=== PATIENT | female | born 1980 | race Caucasian/White ===

== ENCOUNTER 2017-05-16 15:01 | Emergency (ER) | payer BC, OTHER ==
[~2017-05-16] VITALS: Ht 167.6 cm; Wt 78.6 kg
[~2017-05-16 15:01] MED LIST: CITA40TA12 PO; IBUP600T44 PO; LORA-741 PO
[2017-05-16 15:12] VITALS: TEMP 36.8; Ht 167.6 cm; Wt 78.6 kg
[2017-05-16] MEDS ORDERED: HYDR25CA PO ×2 (15:21→19:20)
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
[2017-05-16 16:45] LABS: URINE APPEARANCE CLEAR (CLEAR); URINE BILIRUBIN NEG (NEG); URINE COLOR DK YELLOW; URINE EPITHELIAL CELL AUTO >30 /lpf (0-5); URINE NITRITE NEG (NEG); URINE PH 5.5 (4.5-7.5); UROBILINOGEN NEG (NEG)
[2017-05-16 16:46] LABS: MANUAL MICROSCOPIC REQUIRED? NO; REVIEW REQ? NO
[2017-05-16 17:02] LABS: BENZODIAZEPINE, URINE NEG (NEG); COCAINE,URINE NEG (NEG); PHENCYCLIDINE, URINE NEG (NEG)
[2017-05-16] MEDS ORDERED: hydrOXYzine HCL 25 MG TAB PO STA (17:11)
[2017-05-16] MEDS ORDERED: CITALOPRAM 20 MG TAB PO STA (17:11)
[2017-05-16 17:46] LABS: BASO % 0.1 %; BASO ABS # 0.01 K/uL (0-0.2); COMPLETE YES; EOS % 0.3 %; HEMATOCRIT 40.9 % (37-47); IG% 0.1 %; LYMPH % 19.9 %; LYMPH ABS # 1.59 K/uL (1.2-3.4); MEAN CELL VOLUME 91.7 fL (80-100); MEAN CORPUSCULAR HEMOGLOBIN 31.6 pg (25-34); MEAN CORPUSCULAR HGB CONC 34.5 g/dl (32-36); MEAN PLATELET VOLUME 9.1 fL (7.4-10.4); MONO % 5.3 %; NEUT % 74.3 %; PLATELET COUNT 236 K/uL (130-400); RED BLOOD COUNT 4.46 M/uL (4.2-5.4)
[2017-05-16] MEDS ORDERED: LORAZEPAM 1 MG TAB SL STA (17:47)
[2017-05-16 18:07] LABS: ALT/SGPT 30 U/L (12-78); BLOOD UREA NITROGEN 12 mg/dl (7-18); BUN/CREATININE RATIO 15.7 (10-20); CALCIUM 9.1 mg/dl (8.5-10.1); CARBON DIOXIDE 28 mmol/L (21-32); CHLORIDE 103 mmol/L (98-107); CREATININE 0.75 mg/dl (0.60-1.20); GLUCOSE 107 mg/dl (70-99); POTASSIUM 3.9 mmol/L (3.5-5.1); SODIUM 137 mmol/L (136-145)
[2017-05-16 18:18] LABS: ALKALINE PHOSPHATASE 86 U/L (45-117); AST/SGOT 21 U/L (15-37)
[2017-05-16] MEDS ORDERED: CITA20TA4 PO (19:20)
[2017-05-16 19:35] VITALS: BP 122/78; PULSE 72; O2SAT 98
== END 2017-05-16 19:35 | disposition home or self-care (01) ==
LOC: C.EDB 15:06 → C.EDA 19:35
DX: F39 Unspecified mood [affective] disorder (principal); H91.90 Unspecified hearing loss, unspecified ear